=== PATIENT | female | born 2000 | race Asian ===

== ENCOUNTER 2022-11-20 03:02 | Emergency (ER) | payer OTHER ==
[~2022-11-20] VITALS: Ht 157.5 cm; Wt 50.0 kg
[2022-11-20 03:10] VITALS: BP 106/65
[2022-11-20] MEDS ORDERED: VISCOUS LIDOCAINE 2% 15 ML UDC MM STA (05:21)
[2022-11-20] MEDS ORDERED: DEXAMETHASONE 10 MG/ML VIAL IV ONE (05:30)
== END 2022-11-20 06:36 | disposition home or self-care (01) ==
LOC: ER 03:25
DX: J02.9 Acute pharyngitis, unspecified (principal); R05.9 Cough, unspecified; R09.81 Nasal congestion
CPT/HCPCS: 87070; 87430; 96374; 99283; J1100; Z7610

== ENCOUNTER 2025-03-05 10:45 | Emergency (ER) | payer SELFPAY ==
[~2025-03-05] VITALS: Ht 162.6 cm; Wt 55.0 kg
[2025-03-05 10:47] VITALS: O2SAT 99
[2025-03-05] MEDS: SODIUM CHLORIDE 0.9% 1,000 ML IV ONE (11:21)
[2025-03-05] MEDS: ONDANSETRON HCL 4MG/2ML INJ IV ONE (11:21)
[2025-03-05] MEDS: KETOROLAC 15MG/ML VIAL IV ONE (11:21)
[2025-03-05 11:29] LABS: HEMATOCRIT. 39.5 % (36.0-48.0); HEMOGLOBIN. 13.3 g/dL (12.0-16.0); MEAN PLATELET VOLUME 7.8 fl (7.4-10.4); PLATELET 411 x1000/uL (130-400); RED BLOOD CELL COUNT 4.10 mill/uL (4.2-5.4); RED CELL DISTRIBUTION WIDTH 12.8 % (11.6-14.6)
[2025-03-05 11:45] LABS: CREATININE 1.0 mg/dL (0.6-1.0)
[2025-03-05 11:46] LABS: UREA NITROGEN BLOOD 12 mg/dL (9-23)
[2025-03-05 11:47] LABS: HCG SCREEN NEGATIVE
[2025-03-05 12:08] LABS: BAND% 17.0 % (1.0-6.0); LYMPHOCYTES % MANUAL 4.0 % (20.0-60.0); MONOCYTES % MANUAL 7.0 % (2.0-8.0); NEUTROPHILS % MANUAL 72.0 % (45.0-75.0)
[2025-03-05 12:09] LABS: PLATELET ESTIMATE SLIGHTLY INCREASED
[2025-03-05] MEDS ORDERED: TOPUD PO (13:21)
[2025-03-05] MEDS ORDERED: ONDA4TAB50 PO (13:21)
[2025-03-05 13:45] VITALS: BP 112/72; PULSE 72; RESP 16; TEMP 36.6; O2SAT 99
== END 2025-03-05 14:07 | disposition home or self-care (01) ==
LOC: ER 10:45
DX: R10.84 Generalized abdominal pain (principal); R11.2 Nausea with vomiting, unspecified; J45.909 Unspecified asthma, uncomplicated; Z88.5 Allergy status to narcotic agent
CPT/HCPCS: 80048; 84703; 85025; 86850; 86900; 86901; 36415; 74176; 76705; 96361; 96374; 96375; 99285; J1885; J2405; J7030; Z7610 ×2; A4606

== ENCOUNTER 2025-03-11 04:20 | Inpatient (IN) | payer SELFPAY ==
[~2025-03-11] VITALS: Ht 157.5 cm; Wt 45.4 kg
[~2025-03-11 04:20] MED LIST: ONDA4TAB50 PO; TOPUD PO
[2025-03-11 05:03] LABS: CLARITY URINE CLOUDY (CLEAR); COLOR URINE YELLOW (YELLOW); GLUCOSE URINE NEGATIVE (NEGATIVE); KETONES URINE TRACE (NEGATIVE); LEUKOCYTE ESTERASE URINE 2+ (NEGATIVE); NITRITE URINE NEGATIVE (NEGATIVE); OCCULT BLOOD URINE NEGATIVE (NEGATIVE); PH URINE 5.5 (4.5-8.0); PROTEIN URINE NEGATIVE (NEGATIVE); SPECIFIC GRAVITY URINE 1.024 (1.005-1.030); UROBILINOGEN URINE 1.0 E.U./dL (0.2-1.0)
[2025-03-11 05:19] LABS: BASOPHILS % 0.5 % (0.0-2.0); EOSINOPHILS % 4.1 % (0.0-5.0); HEMATOCRIT. 42.5 % (36.0-48.0); HEMOGLOBIN. 14.5 g/dL (12.0-16.0); LYMPHOCYTES % 22.9 % (20.0-50.0); MEAN PLATELET VOLUME 8.2 fl (7.4-10.4); MONOCYTES % 6.4 % (2.0-8.0); NEUTROPHILS % 66.1 % (40.0-76.0); PLATELET 387 x1000/uL (130-400); RED BLOOD CELL COUNT 4.45 mill/uL (4.2-5.4); RED CELL DISTRIBUTION WIDTH 12.8 % (11.6-14.6)
[2025-03-11] MEDS: ACETAMINOPHEN 1000MG/100ML 100 ML IV ONE (05:21)
[2025-03-11] MEDS: ONDANSETRON HCL 4MG/2ML INJ IV ONE (05:21)
[2025-03-11] MEDS: PANTOPRAZOLE SODIUM 40 MG/VIAL IV ONE (05:22)
[2025-03-11] MEDS: SODIUM CHLORIDE 0.9% 1,000 ML IV ONE (05:22)
[2025-03-11 05:34] LABS: CREATININE 0.8 mg/dL (0.6-1.0)
[2025-03-11 05:35] LABS: UREA NITROGEN BLOOD 7 mg/dL (9-23)
[2025-03-11 05:36] LABS: ASPARTATE AMINOTRANSFERASE 19 IU/L (<34)
[2025-03-11 05:37] LABS: BILIRUBIN DIRECT 0.1 mg/dL (<=3.0); BILIRUBIN TOTAL 0.5 mg/dL (0.1-1.0); PROTEIN TOTAL 8.1 g/dL (6.0-8.3)
[2025-03-11 05:51] LABS: HCG SCREEN NEGATIVE
[2025-03-11 06:01] LABS: SQUAMOUS EPITHELIAL CELL URINE 1+ /lpf (RARE/1+)
[2025-03-11 06:10] LABS: RBC URINE 0-2 /hpf (0-2)
[2025-03-11 06:11] LABS: BACTERIA URINE 1+
[2025-03-11] MEDS ORDERED: ACETAMINOPHEN 325MG TABLET PO PRN (06:30)
[2025-03-11] MEDS ORDERED: ONDANSETRON HCL 4MG/2ML INJ IV PRN (06:30)
[2025-03-11] MEDS ORDERED: HYDROCODONE/ACETAMINOPHEN 5/325MG TABLET PO PRN (06:30)
[2025-03-11] MEDS ORDERED: DIPHENHYDRAMINE 50MG/ML VIAL IV PRN (06:30)
[2025-03-11 06:32] LABS: ETHANOL BLOOD < 10 mg/dL (<10)
[2025-03-11] MEDS ORDERED: NALOXONE HCL 0.4MG/ML VIAL IV PRN (06:45)
[2025-03-11] MEDS ORDERED: CEFTRIAXONE 1GM/50ML 50 ML IV SCH (06:45)
[2025-03-11] MEDS: LEVOFLOXACIN 500MG PREMIX 100 ML IV ONE (06:49)
[2025-03-11 08:00] VITALS: BP 91/63; PULSE 85; RESP 17; TEMP 36.6; O2SAT 100
[2025-03-11 09:57] LABS: *AMPHETAMINES SCREEN URINE NEGATIVE (NEGATIVE); *BENZODIAZEPINES SCREEN URINE NEGATIVE (NEGATIVE)
[2025-03-11 09:58] LABS: *BARBITURATES SCREEN URINE NEGATIVE (NEGATIVE); *COCAINE SCREEN URINE NEGATIVE (NEGATIVE); CANNABINOID URINE SCREEN NEGATIVE (NEGATIVE); ECSTASY MDMA SCREEN URINE NEGATIVE (NEGATIVE); METHADONE URINE SCREEN NEGATIVE (NEGATIVE); OPIATES URINE SCREEN NEGATIVE (NEGATIVE); PHENCYCLIDINE URINE SCREEN NEGATIVE (NEGATIVE)
[2025-03-11 12:00] VITALS: BP 97/59; PULSE 78; RESP 17; TEMP 36.4; O2SAT 98
[2025-03-11] MEDS: POTASSIUM CHLORIDE 20MEQ/PACKET PO SCH (15:24)
[2025-03-11] MEDS: METRONIDAZOLE 500 MG PREMIX 100 ML IV SCH (15:26)
[2025-03-11 16:00] VITALS: BP 92/67; PULSE 72; RESP 16; TEMP 36.4; O2SAT 98
[2025-03-11 16:42] VITALS: BP 91/63; PULSE 85; RESP 21; TEMP 36.418
[2025-03-11 20:00] VITALS: BP 99/58; PULSE 76; RESP 18; TEMP 36.3; O2SAT 98
[2025-03-12] VITALS: BP 95/59; PULSE 77; RESP 18; TEMP 36.3; O2SAT 100
[2025-03-12] MEDS: SODIUM CHLORIDE 0.9% 1,000 ML IV SCH (02:39)
[2025-03-12 04:00] VITALS: BP 100/60; PULSE 75; RESP 18; TEMP 36.3; O2SAT 100
[2025-03-12] MEDS: CEFTRIAXONE 1GM/50ML 50 ML IV SCH (06:33)
[2025-03-12 06:47] LABS: BASOPHILS % 0.6 % (0.0-2.0); EOSINOPHILS % 7.4 % (0.0-5.0); HEMATOCRIT. 34.6 % (36.0-48.0); HEMOGLOBIN. 11.9 g/dL (12.0-16.0); LYMPHOCYTES % 34.4 % (20.0-50.0); MEAN PLATELET VOLUME 7.9 fl (7.4-10.4); MONOCYTES % 7.4 % (2.0-8.0); NEUTROPHILS % 50.2 % (40.0-76.0); PLATELET 288 x1000/uL (130-400); RED BLOOD CELL COUNT 3.64 mill/uL (4.2-5.4); RED CELL DISTRIBUTION WIDTH 12.3 % (11.6-14.6)
[2025-03-12 06:51] LABS: CREATININE 0.7 mg/dL (0.6-1.0); UREA NITROGEN BLOOD 5 mg/dL (9-23)
[2025-03-12 08:00] VITALS: BP 95/63; PULSE 67; RESP 18; TEMP 36.1; O2SAT 100
[2025-03-12 12:00] VITALS: BP 102/62; PULSE 75; RESP 15; TEMP 36.5; O2SAT 99
[2025-03-12 12:31] VITALS: BP 102/62; PULSE 75; TEMP 97.7; O2SAT 99
== END 2025-03-12 14:06 | disposition home or self-care (01) | DRG 249 ==
LOC: ER 04:20 → 7EST 06:06 → EDBEDREQTM 06:38 → EDBEDREQ 06:38 → ENRESERV 06:53
PROVIDERS: ADMIT Internal Medicine Nephrology; ATTEND Internal Medicine Nephrology
DX: K52.9 Noninfective gastroenteritis and colitis, unspecified (principal); J45.909 Unspecified asthma, uncomplicated; R00.0 Tachycardia, unspecified; Z88.5 Allergy status to narcotic agent
CPT/HCPCS: 36415; 80048; 80076; 80305; 80320; 81003; 84703; 85025; 99285; J0696; J1956; J2405; J2470; J3490; J7030; G0480; J0131